=== PATIENT | male | born 1980 | race Caucasian/White ===

== ENCOUNTER 2022-07-30 13:14 | Emergency (ER) | payer OTHER, SELFPAY ==
[2022-07-30 13:23] VITALS: BP 117/74; PULSE 101; RESP 20; TEMP 36.9; O2SAT 96
--- NOTE | 2022-07-30 13:45 | ED.SOB ---
HPI - SOB/Dyspnea General Chief Complaint: Upper Respiratory Infection Stated Complaint: copd, asthma Time Seen by Provider: 07/30/22 13:45 Source: patient Mode of arrival: ambulatory Limitations: no limitations History of Present Illness HPI Narrative: Mr. Emanuel is a 42-year-old male patient presenting to the clinic today with complaints of productive cough and shortness of breath x3 weeks. He reports it has been gradually getting worse. He reports is able to get the cough up to his throat however he cannot spit it out because he loses air to do so. Has pain with deep inspiration. He denies any fever or chills. He contacted his PCP today and they recommended he be evaluated in the urgent care Related Data Home Medications Medication Instructions Recorded Confirmed fluticasone 250 mcg-salmeterol 50 inhalation 07/30/22 mcg/dose blistr powdr for inhalation (Advair Diskus) ipratropium 0.5 mg-albuterol 3 mg ml inhalation 07/30/22 07/30/22 (2.5 mg base)/3 mL nebulization soln ipratropium bromide 17 inhalation 07/30/22 mcg/actuation HFA aerosol inhaler (Atrovent HFA) Allergies Allergy/AdvReac Type Severity Reaction Status Date / Time codeine Allergy Intermediate HIVES, Verified 07/30/22 13:48 THROAT SWELLS Review of Systems Review of Systems: Pertinent positives per HPI. Patient denies any fever, chills, rash, headache, visual changes, dizziness, runny nose, sore throat, chest pain, palpitations, nausea, vomiting, diarrhea, constipation, abdominal pain, or any urinary issues. PMFSH Comments At the time of my signature, I reviewed and agree with the nursing past medical, surgical, social, and family history. There is no relevant family history pertinent to the patient complaint. Exam Narrative: General: Well-developed, well nourished, in no apparent distress Head: Normocephalic, atraumatic Eyes: Pupils equally round and reactive to light bilaterally, EOM intact, sclera and conjunctive clear, no discharge, lids normal Ears: TMs intact and clear, ear canals clear, no drainage, grossly hearing normal. Nose: Nares patent, no discharge, no inflammation, no sinus tenderness. Mouth: Oral pharynx without lesions or masses, good dentition, MMM. Neck: Supple, trachea midline, no enlargement of anterior or posterior cervical nodes, no thyroid masses or goiter palpable. Cardio: Regular rate and rhythm, s1 and s2 normal, no murmur appreciated. Resp: Lung sounds tight with faint expiratory wheezing throughout, no rhonchi, rales, or rubs- Course Course Emergency Course: Portions of this record may have been created with voice recognition software. Level of Care: Express Care Visit Vital Signs Vital signs: Vital Signs Temperature 36.9 C 07/30/22 13:23 Pulse Rate 101 H 07/30/22 13:23 Respiratory Rate 20 07/30/22 13:23 Blood Pressure 117/74 07/30/22 13:23 Pulse Oximetry 96 07/30/22 13:23 Oxygen Delivery Room Air 07/30/22 13:23 Temperature 36.9 C 07/30/22 13:23 Pulse Rate 101 H 07/30/22 13:23 Respiratory Rate 20 07/30/22 13:23 Blood Pressure 117/74 07/30/22 13:23 Pulse Oximetry 96 07/30/22 13:23 Oxygen Delivery Room Air 07/30/22 13:23 Vital signs reviewed MDM - SOB/Dyspnea MDM Narrative Medical decision making narrative: At the time of visit patient is resting comfortably on the exam table. Handheld DuoNeb treatment was given in the clinic today. Patient symptoms greatly improved and he is declining the chest x-ray at this time. Prescriptions for prednisone, azithromycin, and DuoNeb handheld nebulizer solution was sent to the pharmacy. Supportive measures were discussed with the patient he voiced understanding of discharge instructions and agrees to treatment plan. Differential Diagnosis Differential diagnosis: Likely acute exacerbation of chronic obstructive airways disease, community acquired pneumonia and asthma with exacerbation Disc
[2022-07-30] MEDS: ALBUTEROL SULFATE NEB 2.5 MG/3 ML INH INHALATION (13:55)
[2022-07-30] MEDS: IPRATROPIUM BR 0.02% INH SOLN 0.5 MG/2.5 ML VIAL INHALATION (13:56)
== END 2022-07-30 14:33 | disposition home or self-care (01) ==
PROVIDERS: Emergency Provider Nurse Practitioner Family
DX: J44.1 Chronic obstructive pulmonary disease with (acute) exacerbation (principal)
CPT/HCPCS: 99203; G0463

== ENCOUNTER 2025-05-23 15:07 | Emergency (ER) | payer OTHER, SELFPAY ==
--- NOTE | ~2025-05-23 | XR_ITS ---
XR hip RT 2V w AP pelvis 05/23/2025 15:50 INDICATION: Right hip pain PROCEDURE: 4 views right hip including AP pelvis COMPARISON: No prior studies for comparison. FINDINGS: Fracture, dislocation or subluxation is not identified. Mild osteoarthritis of the right hi p. The soft tissues appear within normal limits. No foreign bodies are identified. IMPRESSION: 1: Mild osteoarthritis of the right hip. Reviewed, dictated and finalized at location A.
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
--- OUTSIDE RECORDS SUMMARY | 2025-05-23 15:14 | XMS_ITS | Encounter Summary ---
Author Organization [facility] Healthcare Address [address] [place] [address] Care Team Providers Care Outreach Analyst Name Role Phone Aakash Penn MD Primary Care Provider [phone] Aakash Penn MD Primary Care Provider [phone] Aakash Penn MD Unavailable [phone] Eevrett Govea MD Unavailable [phone] Reason for Visit * Reason Onset Date Comments Appointment Reminder Call 12/03/2022 Confir med Encounter Details Date Type Department Care Team ([facility] Contact Info) Description 12/03/2022 Telephone [facility] [address] [place] [address] Juliann Pyle RT Appointment Reminder Call (Confirmed ) Social History Tobacco Use Types Packs/Day Years Used Date Smoking Tobacco: Every Day Cigarettes 1 32 Smokeless Tobacco: Never Alcohol Use Standard Drinks/Week Comments Yes 0 (1 standard drink = 0.6 oz pur e alcohol) 2 per year AUDIT-C Answer Date Recorded Q1: How often do you have a drink containing alc ohol? Monthly or less 11/25/2022 Average Number of Drinks Not on file 023 Frequency of Binge Drinking Not on file 05/2023 PHQ-2 Answer Date Recorded PHQ-2 Total Score (If total score is 3 or more points, staff should administer the PHQ-9) 5 11/18/2022 Exercise Vital Sign Answer Date Recorde d On average, how many days pe r week do you engage in moderate to strenuous exercise (like a brisk walk)? 0 days 11/18/2022 On average, how many minutes do you engage in exercise at this level? 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 Gender Identity Not on file Sexual Orientation Not on file documented as of this encounter Plan of Treatment Not on file documented as of this encounter Visit Diagnoses Not on filedocumented in this encounter Additional Health Concerns Infection Onset Date Last Indicated Resolved Time COVID: Suspected 12/18/2022 12/18/2022 12/18/2022 5:40 PM [employer] SALES REPRESENTATIVE COVID: Suspected 12/21/2022 12/21/2022 12/22/2022 3:07 AM [employer] BUSINESS SALES REPRESENTATIVE documented as of this encounter Care Teams Outreach Analyst Relationship Specialty Start Date End Date Aakash Penn MD [address] [place] [address] PCP - General Family Medicine 11/20/20 12/17/22 Aakash Penn MD [address] [place] [address] PCP - General Family Medicine 12/18/22 Aakash Penn MD [address] [place] [address] Family Medicine 12/18/22 Everett Govea MD [address] [place] [address] Poolroom/Poolhall Manager Cardiology 02/02/22 documented as of this encounter
[2025-05-23 15:16] VITALS: BP 143/85; PULSE 71; RESP 16; TEMP 36.6; O2SAT 100
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
== END 2025-05-23 16:10 | disposition home or self-care (01) ==
PROVIDERS: Emergency Provider Nurse Practitioner; PCP Hospitalist
DX: S70.01XA Contusion of right hip, initial encounter (principal); V03.00XA Pedestrian on foot injured in collision with car, pick-up truck or van in nontraffic accident, initial encounter; J44.9 Chronic obstructive pulmonary disease, unspecified; K51.90 Ulcerative colitis, unspecified, without complications
CPT/HCPCS: 73502; 99213; G0463